=== PATIENT | male | born 1990 | race Two or more races ===

== ENCOUNTER 2017-11-06 15:55 | Emergency (ER) | payer BC, MEDICAID ==
[~2017-11-06] VITALS: Ht 170.2 cm; Wt 68.0 kg
[2017-11-06] MEDS ORDERED: LORazepam 0.5 MG TAB PO ONE (16:30)
[2017-11-06] MEDS ORDERED: ASPirin 325 MG TAB PO ONE (16:30)
[2017-11-06 17:26] LABS: Basophils # (auto) 0.1 uL; Basophils % (auto) 0.6 % (0.0-2.0); Eosinophils # (auto) 0 uL; Mean Corpuscular Volume 81.2 fL (80.0-100.0); Monocytes # (auto) 0.4 uL; Nucleated Red Blood Cells % 0.1 %
[2017-11-06 17:29] LABS: Eosinophils % (auto) 0.1 % (0.0-7.0); Hemoglobin 16.7 g/dL (13.5-17.5); Lymphocytes # (auto) 1.3 uL; Lymphocytes % (auto) 13.4 % (10.0-50.0); Mean Corpuscular Hgb Conc. 33.3 g/dL (32.0-36.0); Monocytes % (auto) 4.3 % (0.0-12.0); Neutrophils % (auto) 81.6 % (37.0-80.0); Platelet Count (auto) 247 10^3/uL (140-450); Red Blood Cells 6.17 10^6/uL (4.5-5.90); White Blood Cell 9.8 10^3/uL (4.4-10.8)
[2017-11-06] MEDS ORDERED: SODIUM CHLORIDE 0.9% 1,000 ML IV ONE ×2 (17:40)
[2017-11-06] MEDS ORDERED: LORazepam 2MG/ML-1ML VIAL IV ONE (17:45)
[2017-11-06 17:51] LABS: Albumin 4.7 g/dL (3.4-5.0); BUN/Creatinine Ratio 8.8; Bilirubin, Total 0.8 mg/dL (0.2-1.0); Potassium 4.3 mmol/L (3.5-5.1); Total Protein 8.5 g/dL (6.4-8.2)
[2017-11-06 18:30] VITALS: BP 135/77
[2017-11-06 19:04] LABS: Urine Bacteria NONE SEEN /hpf (None Seen); Urine Blood Negative /uL (Negative); Urine Mucus FEW (None Seen); Urine WBC 2 /hpf (0 - 3)
[2017-11-06 19:20] LABS: Alcohol, Urine < 3.0 mg/dL (0-5); Amphetamine Screen, Urine NEGATIVE (NEGATIVE); Barbiturate Scree,Urine NEGATIVE (NEGATIVE); Benzodiazephine Screen, Urine NEGATIVE (NEGATIVE); Cannabinoid Screen, Urine NEGATIVE (NEGATIVE); Cocaine Screen, Urine NEGATIVE (NEGATIVE); Opiate Scree,Urine NEGATIVE (NEGATIVE); Phencyclidine Screen, Urine NEGATIVE (NEGATIVE)
== END 2017-11-06 20:18 | disposition home or self-care (01) ==
LOC: ER 16:01
DX: F41.9 Anxiety disorder, unspecified (principal); R00.0 Tachycardia, unspecified
CPT/HCPCS: 36415; 71046; 80053; 80307; 81001; 84443; 84484; 85025; 85379; 93005; 96361; 96374; 99285; J2060; J7030